=== PATIENT | female | born 1950 | race Caucasian/White ===

== ENCOUNTER 2021-02-02 16:20 | Outpatient (REF) | payer BC, SELFPAY ==
--- NOTE | ~2021-02-02 | XR_ITS ---
EXAMINATION: RIGHT ELBOW, RIGHT SHOULDER AND CERVICAL SPINE. 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 Right shoulder. COMPARISON: None TECHNIQUE: 3 views right elbow. 3 views right shoulder and 5 view cervical spine. FINDINGS: Right elbow: There is no visible acute fracture, dislocation or subluxation. The soft tissues are normal. Right shoulder: There is no visible acute fracture, dislocation or subluxation seen. There is mild loss of right AC joint space. The glenohumeral joint space is preserved. No visible acute fracture or dislocation seen. Cervical spine: There is mild straightening of cervical lordosis. The vertebral heights and alignment is normal. There is mild degenerative disc changes C4-C5, C5-C6 and C6-C7 disc levels with moderate ventral spondylosis. No visible acute fracture or dislocation seen. XR/XR elbow RT min 3V IMPRESSION: Degenerative disc changes cervical spine without visible acute fracture or dislocation. Unremarkable right shoulder exam. Unremarkable right elbow exam.
--- NOTE | ~2021-02-02 | XR_ITS ---
EXAMINATION: RIGHT ELBOW, RIGHT SHOULDER AND CERVICAL SPINE. 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 Right shoulder. COMPARISON: None TECHNIQUE: 3 views right elbow. 3 views right shoulder and 5 view cervical spine. FINDINGS: Right elbow: There is no visible acute fracture, dislocation or subluxation. The soft tissues are normal. Right shoulder: There is no visible acute fracture, dislocation or subluxation seen. There is mild loss of right AC joint space. The glenohumeral joint space is preserved. No visible acute fracture or dislocation seen. Cervical spine: There is mild straightening of cervical lordosis. The vertebral heights and alignment is normal. There is mild degenerative disc changes C4-C5, C5-C6 and C6-C7 disc levels with moderate ventral spondylosis. No visible acute fracture or dislocation seen. XR/XR shoulder RT min 2V IMPRESSION: Degenerative disc changes cervical spine without visible acute fracture or dislocation. Unremarkable right shoulder exam. Unremarkable right elbow exam.
--- NOTE | ~2021-02-02 | XR_ITS ---
EXAMINATION: RIGHT ELBOW, RIGHT SHOULDER AND CERVICAL SPINE. 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 Right shoulder. COMPARISON: None TECHNIQUE: 3 views right elbow. 3 views right shoulder and 5 view cervical spine. FINDINGS: Right elbow: There is no visible acute fracture, dislocation or subluxation. The soft tissues are normal. Right shoulder: There is no visible acute fracture, dislocation or subluxation seen. There is mild loss of right AC joint space. The glenohumeral joint space is preserved. No visible acute fracture or dislocation seen. Cervical spine: There is mild straightening of cervical lordosis. The vertebral heights and alignment is normal. There is mild degenerative disc changes C4-C5, C5-C6 and C6-C7 disc levels with moderate ventral spondylosis. No visible acute fracture or dislocation seen. XR/XR cervical spine 5V IMPRESSION: Degenerative disc changes cervical spine without visible acute fracture or dislocation. Unremarkable right shoulder exam. Unremarkable right elbow exam.
== END 2021-02-02 16:21 | disposition home or self-care (01) ==
LOC: HO.XRAY 16:20
PROVIDERS: PCP Internal Medicine; Visit Provider Internal Medicine
DX: M47.812 Spondylosis without myelopathy or radiculopathy, cervical region (principal); M25.511 Pain in right shoulder; G56.22 Lesion of ulnar nerve, left upper limb
CPT/HCPCS: 72050; 73030; 73080

== ENCOUNTER → 2021-02-18 08:18 | Outpatient (BNVA) | payer BC, MEDICARE, SELFPAY | PROVIDERS: PCP Internal Medicine; Visit Provider Orthopaedic Surgery ==

== ENCOUNTER 2023-03-07 08:10 | Outpatient (AMB) | payer MEDICARE, SELFPAY ==
--- NOTE | 2023-03-07 08:16 | A.OFFVIS_ITS ---
Intake Vital Signs 03/07/23 08:17 Height 4 ft 11.5 in Weight 131 lb 13.383 oz BMI 26.2 BP 116/64 Blood Pressure Location Rt brachial Position Sitting Pulse 95 Pulse Source Pulse Oximeter Temp 97.4 F Temp Source Skin Pulse Oximetry (%) 98 Intake Visit Reasons: Osteoarthritis Intake Note: New pt presents today for OA consult. Appliance Servicer Required: No Accompanied by: Self / Same As Patient Allergies codeine Allergy (Unknown, Verified 03/07/23 08:20) Nausea and Vomiting adhesive Allergy (Unknown, Uncoded 03/07/23 08:20) Rash Darvocet-N 100 Allergy (Unknown, Uncoded 03/07/23 08:20) Vomiting Medication List - Last Reconciled 03/07/23 by Tab Landon MD naproxen sodium (Aleve) 440 mg PO DAILY PRN HPI HPI Comments History of Present Illness Details The patient presents for evaluation of multiple areas of joint pain. Mostly she is concerned about pain in the wrists. When asked to point to the area she points to the enlarged CMC joint at the base of both thumbs. This is more prominent on the right hand. She notes symptoms are worse with heavier use of the hand. She notes no injury to that area. There has been some catching along the 3rd flexor tendon in the right finger for the past 2 months. She also was been bothered for years with bilateral hand numbness. This is classically worse at night for her. She was told she had carpal tunnel syndrome. Nerve conductions were done but I do not seem to have any copies of them. She does not recall who did them. She also had a period of time when she has some numbness that was more prominent in the right 4th and 5th fingers with radiation of pain up the arm to the back of the scapula. She was told this was an ulnar nerve problem. It improved eventually with time and physical therapy. She has intermittent neck pain attributed to cervical osteoarthritis. She has had occasional shoulder pain as well. 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 Those activities, when pushed, do lead to her having more hand pain. The patient did see a hand surgeon when she had the ulnar nerve symptoms. At that point she did not seem to want to proceed with any surgical treatment. [facility], [facility] Medical History (Updated 03/07/23 @ 16:15 by Tab Landon MD) Carpal tunnel syndrome Hx of breast cancer Malignant tumor of breast Osteoarthritis Osteopenia Surgical History (Updated 03/07/23 @ 08:22 by OMAR Long) History of bladder surgery History of hysterectomy, supracervical History of lumpectomy of left breast S/P radiation therapy Family History (Updated 03/07/23 @ 08:22 by OMAR Long) Mother Type 2 diabetes mellitus Hypertension Myocardial infarction Father Family history of prostate cancer Brother Type 2 diabetes mellitus Social History (Updated 03/07/23 @ 08:21 by OMAR Long) Household Members: Spouse Alcohol intake: current Alcohol intake frequency: a few times a week Alcohol type: wine Patient Tobacco Use Status: Never used Tobacco Current occupational status: retired Current occupation: [employer] Review of Systems Const Details: Negative for appetite change, weight change, fever, chills, malaise and fatigue Eyes Details: There are rare episodes of lightheadedness, usually related changes in position. Negative for vision change, dry eyes,headaches ENT Details: Some chronic hearing loss, she uses hearing aids. Negative for hearing change, tinnitus, oral ulcer, nose bleeds and oral dryness. Card Details: Negative chest pain, edema and syncope Resp Details: Negative for SOB, cough and wheezing GI Details: Negative indigestion/heartburn, nausea, abdominal pain, bowel changes, diarrhea, constipation and bloody stool. Details: Negative for dysuria, hematuria, nocturia, decreased force/flow and genital discharge Skin/Breast Details: Negative for itching, rash, hives, Raynaud's symptoms, sun sensitivity, and skin cancer Neuro Details: Negative for epilepsy, palsy, stroke, changes in speech, tingling and weakness Psych Details: Negative for anxiety, depression and stress Endo Details: Negative for polyuria and polydypsia Gustavo/Lymph Details: Negative for excessive bruising or bleeding. Physical Exam Vital Signs: Last Vital Signs Temp 97.4 F 03/07/23 08:17 Pulse 95 03/07/23 08:17 BP 116/64 03/07/23 08:17 Pulse Ox 98 03/07/23 08:17 BMI result Body Mass Index 26.2 APPEARANCE: Patient in no acute distress EYES no redness, pupils equal and reactive to light, eyelids normal. No temporal artery tenderness, redness or swelling. EARS: Decreased hearing evident. External ear normal, canal clear and tympanic membrane normal. NOSE/SINUS: Airflow through both nares, no nasal discharge, no bleeding THROAT: Oral mucosa moist, no ulcerations NECK: No thyromegaly or masses, no adenopathy, trachea midline. HEART: Regulrar rhythm, S1-S2 heard, no murmurs, rubs or gallops. LUNG: Clear to percussion and auscultation ABD: Normal bowel sounds, no organomegaly, masses or tenderness. EXTREMITIES: No edema, no calf tenderness, normal peripheral pulses. NEURO: Oriented and alert x3. No focal weakness. Reflexes symmetric. Gait normal. SKIN: No inflammatory or neoplastic lesions. Normal color and turgor JOINT EXAM:?? Cervical Spine:.? Mild pain with lateral flexion at 10 degrees or rotation at 45 degrees to either side. There is no tenderness. Thoracic Spine:.? No scoliosis.? No tenderness on palpation. Lumbar Spine:.? Alignment normal.? Lumbar pain with extremes of flexion extension with some paraspinal muscle tenderness. Chest Wall:.? No tenderness, swelling, increased warmth or erythema. Hands: Right: There is moderate bony enlargement and mild to moderate tenderness at the base of the thumb. There is some thenar atrophy evident. The thumb IP, all the PIP, and all the DIP joints have bony enlargement. The 2nd through 3rd PIP are slightly tender. There is some mild tenderness along this 3rd floor flexor tendon where she is having some triggering. Left: There is mild bony enlargement and mild tenderness at the base of the thumb. The thumb IP, all the PIP, all the PIP has some mild bony enlargement. No soft tissue swelling or flexor tendon triggering. Wrists:.? Normal pain-free range of motion without tenderness, swelling, increased warmth or erythema. Negative Phalen's and Tinel signs. Elbows:. Normal pain-free range of motion without tenderness, swelling, increased warmth or erythema. Shoulders:.?? Full range of motion without pain. No tenderness, weakness, swelling, increased warmth or erythema. Hips:.? Full range of motion without pain. Hip bursa:? No tenderness. Knees:?? Normal pain-free range of motion with mild patellofemoral crepitus but no effusion, tenderness, swelling, increased warmth or erythema.? Ankles:? Normal pain-free range of motion without tenderness, swelling, increased warmth or erythema. Feet:.? Right: There is some prominence of the 2nd toe consistent with a hammertoe. It is not tender. Elsewhere there is no tenderness or swelling. Left: 1st MTP has some bony enlargement and slight hallux valgus deformity but no tenderness. Elsewhere there is normal pain-free range of motion without tenderness, swelling, increased warmth or erythema. Tender points:.? No tenderness to digital palpation at the occiput, trapezius, second rib, lateral epicondyle, knees, greater trochanter and gluteal area bilaterally. ? Assessment & Plan Assessment & Plan (1) Osteoarthritis cervical spine: Code(s): M47.812 - Spondylosis without myelopathy or radiculopathy, cervical region (2) Flexor tenosynovitis of finger: Code(s): M65.9 - Synovitis and tenosynovitis, unspecified (3) Bilateral hand numbness: Code(s): R20.0 - Anesthesia of skin (4) Osteoarthritis of hands, bilateral: Code(s): M19.041 - Primary osteoarthritis, right hand; M19.042 - Primary osteoarthritis, left hand Plan The findings today show prominent osteoarthritis at the base of the thumbs. That seemingly generates most of her hand symptoms. There is also some osteoarthritis in many other interphalangeal joints. Cervical osteoarthritis is also been demonstrated which probably accounts for neck pain. She does have intermittent hand numbness, mostly at night. This could suggest nerve entrapment such as carpal tunnel, cubital tunnel, ulnar neuropathy, or cervical nerve root compression. That numbness does not seem to be big problem for her. She does use some wrist splints and that seems to be helpful. We could pursue further workup and consideration for surgery on that but she does not think it is worth it for now. For the thumb OA symptomatic measures such as [id number] analgesics and splinting were reviewed with her. She did not want to proceed with thumb spica splinting for now. Surgical option was also declined. If she wants to see a hand surgeon about the hand numbness, the 3rd finger triggering or the thumb OA she should give us a call we could make a referral. She could also seek such a referral through her primary doctor. She could return in the future if she thinks symptoms change. Coding Level of Care Code New Pt Level 3 (04917) Diagnoses Osteoarthritis cervical spine M47.812 Flexor tenosynovitis of finger M65.9 Bilateral hand numbness R20.0 Osteoarthritis of hands, bilateral M19.041; M19.042
[2023-03-07 08:17] VITALS: BP 116/64; PULSE 95; TEMP 36.3; O2SAT 98; BMI 26.2
== END 2023-03-07 09:14 | disposition home or self-care (01) ==
LOC: HO.RHE 08:10
PROVIDERS: PCP Internal Medicine; Visit Provider Internal Medicine Rheumatology
DX: M47.812 Spondylosis without myelopathy or radiculopathy, cervical region (principal); M65.9 Synovitis and tenosynovitis, unspecified; R20.0 Anesthesia of skin; M19.041 Primary osteoarthritis, right hand; M19.042 Primary osteoarthritis, left hand
CPT/HCPCS: 99203

== ENCOUNTER → 2023-03-07 08:10 | Outpatient (BNVA) | payer MEDICARE, SELFPAY | PROVIDERS: PCP Internal Medicine; Visit Provider Internal Medicine Rheumatology | DX: M47.812 Spondylosis without myelopathy or radiculopathy, cervical region (principal); M65.9 Synovitis and tenosynovitis, unspecified; M19.041 Primary osteoarthritis, right hand; M19.042 Primary osteoarthritis, left hand; R20.0 Anesthesia of skin | CPT/HCPCS: 99202 ==